=== PATIENT | female | born 2000 | race Hispanic/Latino ===

== ENCOUNTER 2018-05-02 20:18 | Emergency (ER) | payer BC, MEDICAID, OTHER | END 2018-05-02 20:57 | disposition home or self-care (01) | LOC: EDH 20:18 | DX: J06.9 Acute upper respiratory infection, unspecified (principal); R05 Cough; Z88.0 Allergy status to penicillin | CPT/HCPCS: 99281 ==

== ENCOUNTER 2024-06-12 23:36 | Emergency (ER) | payer SELFPAY ==
[~2024-06-12] VITALS: Ht 165.1 cm; Wt 128.4 kg
[~2024-06-12 23:36] MED LIST: ACET-2247 PO; AZIT500T2 PO; IBUP-1552 PO; NAPR-1180 PO; OSEL75 PO
[2024-06-13 00:27] LABS: BASOPHILS # (AUTO) 0.05 K/uL (0.00-0.20); BASOPHILS % (AUTO) 0.4 % (0.0-5.0); EOSINOPHILS % (AUTO) 2.7 % (0.0-8.0); HEMATOCRIT 42.6 % (36-48); IMMATURE GRANULOCYTE ABSOLUTE 0.04 K/uL (0-1); LYMPHOCYTES # (AUTO) 3.4 K/uL (1.0-4.8); LYMPHOCYTES % (AUTO) 30.5 % (21.0-51.0); MEAN CORPUSCULAR HEMOGLOBIN 29.6 pg (27.0-33.0); MEAN CORPUSCULAR HGB CONC 33.1 g/dL (32.0-36.0); MEAN CORPUSCULAR VOLUME 89.3 fL (79-99); MONOCYTES # (AUTO) 0.8 K/uL (0.1-1.0); MONOCYTES % (AUTO) 7.3 % (3.0-13.0); NEUTROPHILS # (AUTO) 6.6 K/uL (1.8-7.7); NEUTROPHILS % (AUTO) 58.7 % (40.0-77.0); PLATELET COUNT (AUTO) 324 K/uL (130-400); RED BLOOD CELL COUNT(AUTO) 4.77 MIL/uL (4.00-5.50); WHITE BLOOD COUNT (AUTO) 11.3 K/uL (4.8-10.8)
[2024-06-13 00:43] LABS: CREATININE 0.7 mg/dL (0.5-1.0); POTASSIUM 3.4 mmol/L (3.5-5.1)
[2024-06-13] MEDS: 0.9%NACL 1000ML 1,000 ML IV ONE (00:45)
[2024-06-13] MEDS: DiphenhydrAMINE HCL 50 MG/ML VIAL IV ONE (00:46)
[2024-06-13] MEDS: acetaMINOPHEN 500 MG TABLET PO ONE (00:46)
[2024-06-13] MEDS: metoCLOPRAmide 10 MG/2 ML VIAL IVP ONE (00:46)
--- NOTE | 2024-06-13 01:57 | ERN ---
ED Note History of Present Illness Stated Complaint: C/O ABD PAIN, HEADACHE,RINGING IN RT EAR, DIZZINES Chief Complaint: Multiple Complaints Time Seen by MD: 23:44 Time Seen by Midlevel: 23:44 Dictation: Patient is a 24-year-old female with no past medical history who presents to the emergency department with complaints of right-sided headache associated with nausea, occasional dizziness. Patient reports symptoms have been going on on and off for two months ago after she accidentally hit her head after falling. Reports she did not seek any medical attention then. Reports she has been taking Tylenol [id number] and it seems to improve but this episode is stronger than previous wounds. Denies any fevers, vomiting. Allergies: Coded Allergies: Penicillins (Unverified Allergy, Unknown, 11/30/20) Home Meds Active Scripts Ibuprofen (Ibu) 400 Mg Tablet, 800 MG PO TIDP, #60 TAB Prov:JENNIFER NAILS 05/22/21 Acetaminophen (Tylenol) 325 Mg Tablet, 650 MG PO Q4HPRN, #50 TAB Prov:JENNIFER NIALS 05/22/21 Oseltamivir Phosphate (Tamiflu) 75 Mg Cap, 75 MG PO BID for 5 Days, #10 CAP Prov:JENNIFER NAILS 05/22/21 Naproxen (Naprosyn) 500 Mg Tablet, 500 MG PO BIDPC for 10 Days, #20 TAB 0 Refills Prov:BARBARA JUÁREZ MD 11/30/20 Azithromycin (Zithromax Tri-Walter) 500 Mg Tablet, 500 MG PO DAILY for 3 Days, #3 TAB Prov:BARBARA JUÁREZ MD 11/30/20 Past Medical History Past Medical History: No Pertinent History Additional Past Medical Hx: Obesity Surgical History: None Family History: HTN Social History: Drugs, Lives with family LMP: May 28, 2024 RN Note Reviewed/Agreed w/PFSH: Yes Review of System Dictation Constitutional: Negative for fever,chills, and weight loss Eyes: Negative for injury, pain,redness, and discharge ENT: Negative for injury,pain or swelling Cardiovascular: Negative for chest pain, palpitations, and edema Respiratory: Negative for shortness of breath, cough, and wheezing, Abdomen/GI: Negative for abdominal pain, vomiting, diarrhea, and constipation positive for nausea Back: Negative for injury and pain : Negative for injury, bleeding and discharge MS/Extremity: Negative for injury and deformity Skin: Negative for rash, and discoloration Neuro: Negative for weakness, numbness, tingling, and seizure positive for headache, dizziness Psych: Negative for suicide ideation, homicidal ideation, and hallucinations Initial Vital Sign VS Vital Signs Date Time Temp Pulse Resp B/P (MAP) Pulse Ox O2 Delivery O2 Flow Rate FiO2 06/12/24 23:38 98.4 77 20 124/78 98 Room Air Physical Exam Dictation Vital Signs reviewed General Appearance: Alert, oriented x 3, no acute distress, well developed, nou rished. Head and Face: non-traumatic. Eyes: PERRL, pink conjunctivas, eyelid no trauma, anterior chamber with arcus senilis. Ears: Pinnas intact and no signs of trauma or erythema ear canals clear and no discharge TM no erythema Nose: No discharge, no bleeding. Oropharynx: Mouth normal, tongue pink. pharynx clear,no erythema, tonsils no exudates, no abscesses noted, mucous mem brane moist Neck: Supple, non-tender, no thyromegaly, no masses, no JVD, no bruits Breast:Deferred Chest:No tenderness, no crepitus, no paradoxical movement, no retractions Lungs:Clear, well-ventilated, symmetric, no rales, no wheezing, no rhonchi, no stridor, good breath sounds bilaterally Heart: Regular rate, regular rhythm, no murmur, no gallops Vascular: no peripheral edema, Abdomen: Soft, positive bowel sounds, nondistended, no guarding, nontender, no rebound, no masses no hepatomegaly, no splenomegaly, no Diaz's sign, no hernias. Rectal: Deferred Genital: Deferred Neurological: Normal speech, motor function intact, sensory function intact , upper extremities equal in strength, lower extremities equal in strength Musculoskeletal: Neck nontender, full range of motion, back nontender, full range of motion, Extremities: nontender, full range of motion Skin: Color pink, dry, no turgor, no rash, no lacerations, no abrasions, no contusions. Lymphatic: Deferred Results (Laboratory/Radiology) Laboratory/Radiology Laboratory Tests Test 06/13/24 00:02 White Blood Count 11.3 K/uL (4.8-10.8) H Red Blood Count 4.77 MIL/uL (4.00-5.50) Hemoglobin 14.1 g/dL (12.0-16.0) Hematocrit 42.6 % (36-48) Mean Corpuscular Volume 89.3 fL (79-99) Mean Corpuscular Hemoglobin 29.6 pg (27.0-33.0) Mean Corpuscular Hemoglobin Concent 33.1 g/dL (32.0-36.0) Red Cell Distribution Width 12.0 % (11.0-15.5) Platelet Count 324 K/uL (130-400) Mean Platelet Volume 10.5 fL (7.5-10.5) Immature Granulocyte % (Auto) 0.4 % (0-1) Neutrophils (%) (Auto) 58.7 % (40.0-77.0) Lymphocytes (%) (Auto) 30.5 % (21.0-51.0) Monocytes (%) (Auto) 7.3 % (3.0-13.0) Eosinophils (%) (Auto) 2.7 % (0.0-8.0) Basophils (%) (Auto) 0.4 % (0.0-5.0) Neutrophils # (Auto) 6.6 K/uL (1.8-7.7) Lymphocytes # (Auto) 3.4 K/uL (1.0-4.8) Monocytes # (Auto) 0.8 K/uL (0.1-1.0) Eosinophils # (Auto) 0.30 K/uL (0.00-0.70) Basophils # (Auto) 0.05 K/uL (0.00-0.20) Absolute Immature Granulocyte (auto 0.04 K/uL (0-1) Nucleated Red Blood Cells 0.0 % (0.0-0.19) Sodium Level 140 mmol/L (136-145) Potassium Level 3.4 mmol/L (3.5-5.1) L Chloride Level 105 mmol/L (101-111) Carbon Dioxide Level 28 mmol/L (21-32) Blood Urea Nitrogen 11 mg/dL (7-18) Creatinine 0.7 mg/dL (0.5-1.0) Glomerular Filtration Rate Calc 122 mL/min (>90) Random Glucose 98 mg/dL (70-105) Total Calcium 8.4 mg/dL (8.5-10.1) L Total Creatine Kinase 64 U/L (21-232) Troponin I High Sensitivity < 4 ng/L (4-50) L Serum Test, Qualitative NEGATIVE (NEGATIVE) CT head : No acute intracranial hemorrhage. No midline shift or mass effect. The tear to agreed white matter differentiation is maintained throughout. Labs Reviewed?: Yes EKG: (+) rhythm (Sinus rhythm) EKG Comment: Date:06/13/2024 Time:14 Ventricular rate:66 UT interval:165 QRS duration:109 QT/QTc:417 EKG interpretation: Sinus rhythm Reviewed by ED Attending no STEMI ED Course ED Course Orders Procedure Category Date Status Time Cbc With Differential LAB 06/13/24 Complete 00:07 Troponin I High LAB 06/13/24 Complete Sensitivity 00:07 12 Lead Ekg Tracing- EKG 06/13/24 Logged Technical 00:07 0.9%Nacl 1000ml (Ns PHA 06/13/24 Complete 1000ml) 00:30 Creatine Kinase, Total LAB 06/13/24 Complete 00:07 Basic Metabolic Panel LAB 06/13/24 Complete 00:07 Testing, LAB 06/13/24 Complete Serum Hcg 00:07 Acetaminophen 500mg PHA 06/13/24 Complete Tab (Tylenol 500mg T 00:30 Metoclopramide 10 PHA 06/13/24 Complete Mg/2 Ml Vial (Reglan 1 00:30 Diphenhydramine Hcl PHA 06/13/24 Complete (Benadryl Inj) 00:30 Urinalysis Profile LAB 06/13/24 Logged 00:29 Drug Screen Urine LAB 06/13/24 Logged 00:29 Ct Head/Brain W/O CT 06/13/24 Taken Contrast 00:51 Current Medications Medications (Trade) Dose Ordered Sig/Angel Luis Route PRN Reason Start Time Stop Time Status Last Admin Dose Admin Acetaminophen (TYLenol 500MG TAB) 1,000 mg ONCE ONCE PO 06/13/24 00:30 06/13/24 00:31 DC 06/13/24 00:46 Diphenhydramine HCl (BENAdryl INJ) 25 mg ONCE ONCE IV 06/13/24 00:30 06/13/24 00:31 DC 06/13/24 00:46 Metoclopramide HCl (regLAN 10MG IV) 10 mg ONCE ONCE IVP 06/13/24 00:30 06/13/24 00:31 DC 06/13/24 00:46 Sodium Chloride 1,000 ml @ 0 mls/hr ONCE ONCE IV 06/13/24 00:30 06/13/24 00:31 DC 06/13/24 00:45 Vital Signs Date Time Temp Pulse Resp B/P (MAP) Pulse Ox O2 Delivery O2 Flow Rate FiO2 06/12/24 23:38 98.4 77 20 124/78 98 Room Air Medical Decision Making MDM Patient is a 24-year-old female with no past medical history who presents to the emergency department with complaints of right-sided headache associated with nausea, occasional dizziness. Patient reports symptoms have been going on on and off for two months ago after she accidentally hit her head. Reports she did not seek any medical attention then. Reports she has been taking Tylenol [id number] and it seems to improve but this episode is stronger than previous wounds. Denies any fevers, vomiting. CBC showed mild leukocytosis, no anemia, chemistry showed mild hypokalemia, negative troponin, CT showed no acute intracranial hemorrhage or midline shift, mass effect. Patient's symptoms probably related to postconcussion syndrome. We will be discharged to follow up with Neurology. Patient in no acute distress. Continues neurologically intact. Nontoxic appearing, stable vital signs. Differential diagnosis: Migraine headache, post concussion syndrome, dehydrati on, electrolyte imbalance, tachyarrhythmia Need for hospitalization: Patient does not meet criteria for hospitalization. There are no social concerns with this patient. DX & DISP Disposition: Discharge Departure Impression: Primary Impression: Headache Additional Impression: Postconcussion syndrome Condition: Stable Scripts Aspirin/Acetaminophen/Caffeine (Excedrin Extra Strength Caplet) 250 Mg-250 Mg-65 Mg Tablet 2 EACH PO DAILY PRN for headache, #15 TAB Prov: MARIO GILL [employer] 06/13/24 Additional Instructions: Please follow up with your primary doctor in 1-2 days. Take medications as prescribed. If symptoms worsen please return to ER. Follow up with neurology's recommended. Avoid any strenuous activities that can cause re-injury. FOLLOW-UP WITH PRIMARY CARE PROVIDER IN 1 TO 2 DAYS. TAKE MEDICATIONS DIRECTED HERE IN THE EMERGENCY ROOM. OKAY TO CONTINUE HOME MEDICATIONS UNLESS OTHERWISE DISCUSSED DURING YOUR VISIT IN THE EMERGENCY ROOM TODAY. RETURN TO YOUR NEAREST EMERGENCY ROOM IF SYMPTOMS WORSEN OR IF THERE IS NO IMPROVEMENT. CALL 911 IF YOU NEED IMMEDIATE ASSISTANCE. TAKE TYLENOL OR MOTRIN [id number] NEEDED AND IF NO CONTRAINDICATIONS ARE PRESENT. INCREASE ORAL HYDRATION. A WOUND CULTURE OR URINE CULTURE WAS ORDERED HERE IN THE EMERGENCY ROOM DEPARTMENT PLEASE FOLLOW-UP WITH PRIMARY CARE PROVIDER AND ADVISE THEM TO GET REPEAT PORTS FROM OUR FACILITY. IF YOU HAD ANY ATILIO WRAP/SPLINTS THAT WERE APPLIED HERE, PLEASE DO NOT REMOVE THEM UNTIL YOU SEE YOUR PRIMARY CARE OR SPECIALTY. Referrals: SELF,REFERRAL (PCP) RIGO KELLOGG MD Time of Disposition: 02:43 I have reviewed the case, and I agree with, Diagnosis and Plan MARIO GILL [facility] Jun 13, 2024 01:56
--- NOTE | 2024-06-13 02:43 | NUR ---
Note carrolone in ED - 06/13/24 at 0244 by [email or web address] REPORT GIVEN TO EDMAR HERNANDEZ ALL QUESTIONS ANSWERED AT THIS TIME. NO SIGNS OF ACUTE DISTRESS NOTED AT TIME OF DEPARTURE. ALL BELONGINGS SENT WITH PT AND RN AT TIME OF TRANSFER TO [facility]. RN EXPECTING PT ARRIVAL TO THE UNIT.
[2024-06-13] MEDS ORDERED: ASPI-1190 PO (02:46)
[2024-06-13 02:50] VITALS: BP 115/69; PULSE 72; RESP 18; TEMP 98.4; O2SAT 98
--- NOTE | 2024-06-13 06:33 | EKG ---
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
--- NOTE | 2024-06-13 09:22 | HMCIMG ---
CT HEAD WITHOUT CONTRAST INDICATION: Headache and nausea TECHNIQUE: Noncontrast axial helical CT images from the vertex through the skull base using 5 mm slice thickness without contrast material. CT was performed with one or more of the following dose reduction techniques: Automated exposure control, adjustment of the mA and/or kV according to patient size, or use of iterative reconstruction technique. COMPARISON: None FINDINGS: The cerebral and cerebellar hemispheres are age-appropriate in appearance. No evidence for abnormal extra-axial fluid collections or masses. The ventricles and sulci are normal in size and configuration. No evidence for intracranial parenchymal, epidural, or subdural hemorrhage, mass effect or midline shift. The recinos-white matter differentiation is well preserved. No secondary evidence to suggest acute ischemia. The brainstem and cerebellum appear normal. The visualized orbits appear unremarkable. The visible paranasal sinuses and mastoid air cells are clear. The calvarium appears normal. IMPRESSION: No acute intracranial process identified.
== END 2024-06-13 03:00 | disposition home or self-care (01) ==
LOC: EDH 23:36
DX: R51.9 Headache, unspecified (principal); F07.81 Postconcussional syndrome; E66.9 Obesity, unspecified; Z88.0 Allergy status to penicillin
CPT/HCPCS: 99285; 82550; 84484; 80048; 84703; 85025; 36415; 96374; 70450; 96361; 96375; 93005; J1200; J7030; J2765